=== PATIENT | female | born 1950 | race Caucasian/White ===

== ENCOUNTER 2017-08-10 15:21 | Inpatient (IN) ==
[2017-08-10] MEDS ORDERED: ONDANSETRON 4 MG/2 ML VIAL ONE ×2 (15:43→16:34)
[2017-08-10] MEDS ORDERED: ONDANSETRON 4 MG/2 ML VIAL IV STA (15:44)
[2017-08-10] MEDS ORDERED: HYDROmorphone 2 MG/1 ML VIAL ONE ×2 (15:44→16:34)
[2017-08-10] MEDS ORDERED: HYDROmorphone 2 MG/1 ML VIAL IV STA (15:44)
[2017-08-10] MEDS ORDERED: SODIUM CHLORIDE 0.9% 500 ML IV STA (15:44)
[2017-08-10 16:33] LABS: Basophils % 0.2 % (0.0-0.8); Eosinophils % 0.1 % (0.00-10.9); Hematocrit 31.4 VOL% (35.7-47.0); Hemoglobin 9.8 GM/DL (12.0-16.0); Immature Granulocytes % 0.7 %; Immature Granulocytes Absolute 0.13 #; Lymphocytes # 0.5 10*3/uL (1.4-4.0); Lymphocytes % 2.8 % (21.3-54.2); Mean Corpuscular HGB Conc 31.2 GM/DL (32-36); Mean Corpuscular Hemoglobin 27 PG (27-34); Mean Corpuscular Volume 86.5 FL (87-102); Mean Platelet Volume 9.1 FL (9.6-12.0); Monocytes # 0.7 10*3/uL (0.11-0.8); Monocytes % 3.7 % (1.7-12.7); Neutrophils # 17.6 10*3/uL (1.4-7.4); Neutrophils % 92.5 % (38.7-73.9); Platelet Count 435 T/CUMM (130-400); Red Blood Count 3.63 MC/CUMM (3.8-5.5); Red Cell Distribution Width 16.7 % (9.3-17.3)
[2017-08-10] MEDS ORDERED: MIDAZOLAM 2 MG/2 ML VIAL ONE (16:33)
[2017-08-10 16:42] LABS: PT Patient Result 10.7 SECS; Partial Thromboplastin Time 26.8 SECS (0-40)
[2017-08-10 16:53] LABS: Albumin 2.4 G/DL (3.4-5.0); Bilirubin,Total 0.4 MG/DL (0.2-1.0); Osmolality,Calculated 307.8 MOS/KG (273-304); Total Protein 5.8 G/DL (6.4-8.3)
[2017-08-10 16:54] LABS: Potassium 6.8 MMOL/L (3.5-5.1)
[2017-08-10] MEDS ORDERED: DEXTROSE 50% 25 GM/50 ML VIAL IV STA (16:59)
[2017-08-10] MEDS ORDERED: CALCIUM GLUCONATE 2,000 MG in SODIUM CHLORIDE 0.9% 100 ML IV ONE (17:01)
[2017-08-10] MEDS ORDERED: SODIUM POLYSTYRENE SULFATE 15 GM/60 ML BOTTLE PO STA (17:02)
[2017-08-10] MEDS ORDERED: INSULIN REGULAR 100 UNIT/ML IV STA (17:05)
[2017-08-10 17:20] LABS: Band Neutrophils 2 % (0-10); Lymphocytes 4 % (20-55); Platelet Estimate Increased; Segmented Neutrophils 91 % (50-85); Total Cells Counted 100
[2017-08-10] MEDS ORDERED: SODIUM POLYSTYRENE SULFATE 15 GM/60 ML BOTTLE ONE (17:24)
[2017-08-10] MEDS ORDERED: DEXTROSE 50% 25 GM/50 ML SYRINGE IV ONE (17:25)
[2017-08-10] MEDS ORDERED: CALCIUM GLUCONATE 1,000 MG/10 ML VIAL IV ONE (17:25)
[2017-08-10] MEDS: DEXTROSE 10% 1,000 ML IV SCH (18:55)
[2017-08-10] MEDS ORDERED: ACETAMINOPHEN 325 MG TABLET PO PRN (20:20)
[2017-08-10] MEDS ORDERED: SODIUM CHLORIDE 0.9% 1,000 ML IV ONE (20:20)
[2017-08-10] MEDS ORDERED: ONDANSETRON 4 MG/2 ML VIAL IV PRN (20:20)
[2017-08-10] MEDS ORDERED: MEROPENEM 500 MG in SYRINGE 1 EACH IV SCH (21:00)
[2017-08-10 21:05] LABS: Magnesium 3.2 MG/DL (1.8-2.4)
[2017-08-10 21:13] LABS: Lactic Acid 1.2 MMOL/L (0.4-2.0)
[2017-08-10] MEDS: MEROPENEM 500 MG in SYRINGE 1 EACH IV SCH (21:40)
[2017-08-10 22:14] LABS: Apearance,Urine Slightly Hazy (Clear); Bilirubin,Urine Negative (Negative); Blood, Urine Large mg/dL (Negative); Glucose,Urine (UA) 150 mg/dL (Negative); Ketones,Urine 5 mg/dL (Negative); Mucus,Urine Occasional /LPF (Occasional); Nitrite,Urine Negative (Negative); Protein,Urine 100 MG/DL; RBC,Urine 2178 /HPF (0-4); Urine Color Yellow (Yellow); Urine Specific Gravity 1.008 (1.001-1.035); Urine Urobilinogen < 2.0 EU/DL (0.2-1.0); WBC,Urine 5 /HPF (0-6)
[2017-08-10] MEDS ORDERED: SODIUM CHLORIDE 0.9% 2,000 ML IV ONE (22:30)
[2017-08-10] MEDS: MORPHINE 10 MG/1 ML VIAL IV PRN (23:38)
[2017-08-11] MEDS: SODIUM BICARB INJ 100 MEQ in SODIUM CHLORIDE 0.9% 1,000 ML IV SCH ×2 (00:33→01:42)
[2017-08-11] MEDS ORDERED: SODIUM POLYSTYRENE SULFATE 15 GM/60 ML BOTTLE PO ONE ×2 (00:57→09:00)
[2017-08-11] MEDS ORDERED: DEXTROSE 50% 25 GM/50 ML VIAL IV PRN (00:58)
[2017-08-11] MEDS ORDERED: SODIUM BICARBONATE 50 MEQ/50 ML SYRINGE IV ONE (00:59)
[2017-08-11 06:46] LABS: Basophils % 0.2 % (0.0-0.8); Eosinophils # 0.1 10*3/uL (0.0-0.87); Eosinophils % 0.3 % (0.00-10.9); Hematocrit 27.3 VOL% (35.7-47.0); Hemoglobin 8.9 GM/DL (12.0-16.0); Immature Granulocytes % 0.6 %; Immature Granulocytes Absolute 0.11 #; Lymphocytes # 0.5 10*3/uL (1.4-4.0); Lymphocytes % 2.6 % (21.3-54.2); Mean Corpuscular HGB Conc 32.6 GM/DL (32-36); Mean Corpuscular Hemoglobin 27 PG (27-34); Mean Platelet Volume 9.4 FL (9.6-12.0); Monocytes # 0.8 10*3/uL (0.11-0.8); Monocytes % 4.5 % (1.7-12.7); Neutrophils # 16.3 10*3/uL (1.4-7.4); Neutrophils % 91.8 % (38.7-73.9); Platelet Count 361 T/CUMM (130-400); Red Blood Count 3.29 MC/CUMM (3.8-5.5); Red Cell Distribution Width 16.6 % (9.3-17.3); White Blood Count 17.8 T/CUMM (4-12)
[2017-08-11 07:12] LABS: Alanine Aminotransferase < 9 U/L (13-56); Albumin 1.8 G/DL (3.4-5.0); Alkaline Phosphatase 234 U/L (45-117); Aspartate Amino Transferase 15 U/L (0-37); Bilirubin,Total < 0.39 MG/DL (0.2-1.0); Blood Urea Nitrogen 109 MG/DL (7-18); Calcium 7.5 MG/DL (8.5-10.1); Glucose 224 MG/DL (74-106); Osmolality,Calculated 326.8 MOS/KG (273-304); Potassium 5.9 MMOL/L (3.5-5.1); Sodium 144 MMOL/L (136-145); Total Protein 4.8 G/DL (6.4-8.3)
[2017-08-11 07:13] LABS: Giant Platelets Few; Hypochromasia 2+; Lymphocytes 3 % (20-55); Ovalocytes Slight; Platelet Estimate Adequate; Segmented Neutrophils 93 % (50-85); Total Cells Counted 100
[2017-08-11 07:28] LABS: Free T4 (Free Thyroxine) 0.7 NG/DL (0.76-1.46); Thyroid Stimulating Hormone 6.17 uIU/ml (0.358-3.74)
[2017-08-11] MEDS: DEXTROSE 10% 1,000 ML IV SCH (07:28)
[2017-08-11] MEDS: MORPHINE 10 MG/1 ML VIAL IV PRN ×2 (07:48→21:37)
[2017-08-11] MEDS: PANTOPRAZOLE 40 MG TABLET PO SCH (08:49)
[2017-08-11] MEDS: NACL 0.22% IV SCH ×2 (09:42→20:51)
[2017-08-11] MEDS: SODIUM BICARB IV SCH ×2 (09:42→20:51)
[2017-08-11] MEDS: DEXTROSE 5% IV SCH ×2 (09:42→20:51)
[2017-08-11 18:37] LABS: Calcium 7.3 MG/DL (8.5-10.1); Osmolality,Calculated 323.1 MOS/KG (273-304); Potassium 5.1 MMOL/L (3.5-5.1)
[2017-08-11] MEDS: MEROPENEM 500 MG in SYRINGE 1 EACH IV SCH (20:59)
[2017-08-12] MEDS: MORPHINE 10 MG/1 ML VIAL IV PRN (01:55)
[2017-08-12] MEDS: DEXTROSE 5% IV SCH ×2 (06:26→08:50)
[2017-08-12] MEDS: SODIUM BICARB IV SCH ×2 (06:26→08:50)
[2017-08-12] MEDS: NACL 0.22% IV SCH ×2 (06:26→08:50)
[2017-08-12 07:00] LABS: Basophils % 0.3 % (0.0-0.8); Eosinophils # 0.3 10*3/uL (0.0-0.87); Eosinophils % 2.3 % (0.00-10.9); Hematocrit 26.3 VOL% (35.7-47.0); Hemoglobin 8.4 GM/DL (12.0-16.0); Immature Granulocytes % 0.5 %; Immature Granulocytes Absolute 0.07 #; Lymphocytes % 7.1 % (21.3-54.2); Mean Corpuscular HGB Conc 31.9 GM/DL (32-36); Mean Corpuscular Hemoglobin 27 PG (27-34); Mean Corpuscular Volume 84.6 FL (87-102); Mean Platelet Volume 9.5 FL (9.6-12.0); Monocytes # 0.6 10*3/uL (0.11-0.8); Monocytes % 4.5 % (1.7-12.7); Neutrophils # 11.7 10*3/uL (1.4-7.4); Neutrophils % 85.3 % (38.7-73.9); Platelet Count 284 T/CUMM (130-400); Red Blood Count 3.11 MC/CUMM (3.8-5.5); Red Cell Distribution Width 16.7 % (9.3-17.3); White Blood Count 13.7 T/CUMM (4-12)
[2017-08-12 07:28] LABS: Alanine Aminotransferase < 9 U/L (13-56); Alkaline Phosphatase 247 U/L (45-117); Aspartate Amino Transferase 14 U/L (0-37); Blood Urea Nitrogen 100 MG/DL (7-18); Calcium 7.3 MG/DL (8.5-10.1); Glucose 105 MG/DL (74-106); Osmolality,Calculated 316.8 MOS/KG (273-304); Potassium 4.2 MMOL/L (3.5-5.1); Sodium 144 MMOL/L (136-145)
[2017-08-12] MEDS: PANTOPRAZOLE 40 MG TABLET PO SCH (08:50)
[2017-08-12] MEDS ORDERED: ZINC OXIDE PASTE 113 GM TUBE TOP PRN (10:41)
[2017-08-12] MEDS: SODIUM CHLORIDE 0.45% 1,000 ML IV SCH (10:51)
[2017-08-12] MEDS: MEROPENEM 500 MG in SYRINGE 1 EACH IV SCH (20:21)
[2017-08-12] MEDS: HydrOXYzine PAMOATE 25 MG CAPSULE PO PRN (21:38)
[2017-08-13 05:32] LABS: Basophils % 0.3 % (0.0-0.8); Eosinophils # 0.3 10*3/uL (0.0-0.87); Eosinophils % 2.6 % (0.00-10.9); Hematocrit 24.8 VOL% (35.7-47.0); Hemoglobin 7.6 GM/DL (12.0-16.0); Immature Granulocytes % 0.7 %; Immature Granulocytes Absolute 0.09 #; Lymphocytes % 8.1 % (21.3-54.2); Mean Corpuscular HGB Conc 30.6 GM/DL (32-36); Mean Corpuscular Hemoglobin 27 PG (27-34); Mean Corpuscular Volume 87.3 FL (87-102); Mean Platelet Volume 9.7 FL (9.6-12.0); Monocytes # 0.5 10*3/uL (0.11-0.8); Monocytes % 4.2 % (1.7-12.7); Neutrophils # 10.6 10*3/uL (1.4-7.4); Neutrophils % 84.1 % (38.7-73.9); Platelet Count 231 T/CUMM (130-400); Red Blood Count 2.84 MC/CUMM (3.8-5.5); Red Cell Distribution Width 16.5 % (9.3-17.3); White Blood Count 12.6 T/CUMM (4-12)
[2017-08-13] MEDS: SODIUM CHLORIDE 0.45% 1,000 ML IV SCH (06:28)
[2017-08-13 07:00] LABS: Alanine Aminotransferase < 9 U/L (13-56); Albumin 1.9 G/DL (3.4-5.0); Alkaline Phosphatase 248 U/L (45-117); Aspartate Amino Transferase 17 U/L (0-37); Blood Urea Nitrogen 88 MG/DL (7-18); Calcium 7.6 MG/DL (8.5-10.1); Glucose 73 MG/DL (74-106); Osmolality,Calculated 313.7 MOS/KG (273-304); Potassium 3.8 MMOL/L (3.5-5.1); Sodium 145 MMOL/L (136-145); Total Protein 5.3 G/DL (6.4-8.3)
[2017-08-13] MEDS: PANTOPRAZOLE 40 MG TABLET PO SCH (09:01)
[2017-08-13] MEDS: MORPHINE 10 MG/1 ML VIAL IV PRN (20:11)
[2017-08-13] MEDS: MEROPENEM 500 MG in SYRINGE 1 EACH IV SCH (21:03)
[2017-08-13] MEDS ORDERED: BISACODYL 5 MG TABLET PO PRN (21:54)
[2017-08-13] MEDS ORDERED: PROMETHAZINE 25 MG/1 ML VIAL IM ONE (23:30)
[2017-08-14] MEDS: SODIUM CHLORIDE 0.45% 1,000 ML IV SCH (02:23)
[2017-08-14 06:17] LABS: Basophils % 0.1 % (0.0-0.8); Eosinophils % 0.3 % (0.00-10.9); Hematocrit 27.6 VOL% (35.7-47.0); Immature Granulocytes % 0.5 %; Immature Granulocytes Absolute 0.05 #; Lymphocytes # 0.2 10*3/uL (1.4-4.0); Lymphocytes % 2.3 % (21.3-54.2); Mean Corpuscular HGB Conc 32.6 GM/DL (32-36); Mean Corpuscular Hemoglobin 28 PG (27-34); Mean Corpuscular Volume 86.8 FL (87-102); Monocytes # 0.2 10*3/uL (0.11-0.8); Monocytes % 1.7 % (1.7-12.7); Neutrophils # 9.5 10*3/uL (1.4-7.4); Neutrophils % 95.1 % (38.7-73.9); Platelet Count 233 T/CUMM (130-400); Red Blood Count 3.18 MC/CUMM (3.8-5.5); Red Cell Distribution Width 16.7 % (9.3-17.3)
[2017-08-14 06:30] LABS: Alanine Aminotransferase < 9 U/L (13-56); Alkaline Phosphatase 248 U/L (45-117); Aspartate Amino Transferase 19 U/L (0-37); Blood Urea Nitrogen 81 MG/DL (7-18); Calcium 7.6 MG/DL (8.5-10.1); Glucose 85 MG/DL (74-106); Osmolality,Calculated 314.4 MOS/KG (273-304); Potassium 3.5 MMOL/L (3.5-5.1); Sodium 147 MMOL/L (136-145); Total Protein 5.3 G/DL (6.4-8.3)
[2017-08-14 06:54] LABS: Acanthocytes Few; Hypochromasia 1+; Lymphocytes 4 % (20-55); Microcytosis 1+; Platelet Estimate Normal; Segmented Neutrophils 94 % (50-85); Total Cells Counted 100
[2017-08-14] MEDS: PANTOPRAZOLE 40 MG TABLET PO SCH (09:07)
[2017-08-14] MEDS: HydrOXYzine PAMOATE 25 MG CAPSULE PO PRN (22:52)
[2017-08-15] MEDS: PANTOPRAZOLE 40 MG TABLET PO SCH (08:50)
[2017-08-15] MEDS: LORazepam 0.5 MG TABLET PO PRN (20:26)
[2017-08-15] MEDS: ONDANSETRON 4 MG TABLET PO PRN (20:27)
[2017-08-16] MEDS: ONDANSETRON 4 MG TABLET PO PRN ×2 (08:00→14:27)
[2017-08-16] MEDS: HydrOXYzine PAMOATE 25 MG CAPSULE PO PRN ×2 (08:00→14:27)
[2017-08-16] MEDS: PANTOPRAZOLE 40 MG TABLET PO SCH (08:00)
[2017-08-16] MEDS: LORazepam 0.5 MG TABLET PO PRN ×2 (08:00→14:27)
[2017-08-17] MEDS: LORazepam 0.5 MG TABLET PO PRN ×2 (01:49→10:29)
[2017-08-17] MEDS: ONDANSETRON 4 MG TABLET PO PRN ×2 (01:49→10:30)
[2017-08-17 06:35] LABS: Calcium 7.6 MG/DL (8.5-10.1); Osmolality,Calculated 309.6 MOS/KG (273-304); Potassium 3.5 MMOL/L (3.5-5.1)
[2017-08-17] MEDS ORDERED: DEXTROSE 5% 1,000 ML IV SCH (08:30)
[2017-08-17] MEDS: PANTOPRAZOLE 40 MG TABLET PO SCH (09:11)
[2017-08-17 12:44] VITALS: BP 108/72
== END 2017-08-17 13:30 | disposition hospice, inpatient (51) | DRG 755 ==
LOC: N.ED 15:21 → SUATTDRO 16:23 → N.EDINP 16:23 → N.CC 19:10 → N.5E 08-11 12:00
PROVIDERS: ADMIT Internal Medicine; ATTEND Internal Medicine